=== PATIENT | female | born 1955 ===

== ENCOUNTER 2023-04-20 13:46 | Outpatient (CLI) | payer OTHER | END 2023-04-20 13:50 | disposition home or self-care (01) | LOC: SONOGRAMA 13:46 | PROVIDERS: ATTEND Pathology Anatomic Pathology & Clinical Pathology | DX: C73 Malignant neoplasm of thyroid gland (principal); D44.0 Neoplasm of uncertain behavior of thyroid gland; E07.9 Disorder of thyroid, unspecified ==

== ENCOUNTER 2025-09-22 07:18 | Outpatient (CLI) | payer OTHER | END 2025-09-22 07:19 | disposition home or self-care (01) | LOC: NUCLEAR 07:18 | PROVIDERS: ATTEND Specialist | DX: I11.9 Hypertensive heart disease without heart failure (principal) | CPT/HCPCS: 78452; 93017; A9500 ==